=== PATIENT | male | born 1975 | race Hispanic/Latino ===

== ENCOUNTER 2023-06-16 08:25 | Observation (INO) | payer SELFPAY ==
[2023-06-16 08:44] LABS: Absolute Lymphocytes (CBC) 2.2 K/uL (0.7-4.9); Hematocrit 40.6 % (39.6-49.0); Lymphocytes % 38.5 % (15.3-44.8); MCV 90.1 fL (80-100); MPV 8.9 fL (7.6-11.3); Platelets 203 thou/uL (152-406)
[2023-06-16 08:45] LABS: Protime INR 1.01
[2023-06-16 09:01] LABS: Magnesium 2.1 mg/dL (1.6-2.4); Potassium 3.7 mEq/L (3.5-5.1); Troponin High Sensitivity 6.5 pg/mL (<58.9)
--- NOTE | 2023-06-16 09:03 | RAD REPORT ---
EXAM DESCRIPTION: Jose Single View06/16/2023 8:50 am CLINICAL HISTORY: CHEST PAIN COMPARISON: CHEST PA AND LAT 2 VIEW dated 11/28/2008 TECHNIQUE: Portable AP view of the chest. FINDINGS: The lungs are clear. No pneumothorax or effusion. The cardiomediastinal contours are unre markable. IMPRESSION: No acute cardiopulmonary process.
--- NOTE | 2023-06-16 11:57 | EDPHYS ---
Physician Documentation [facility] Name: Sigifredo Hoffmann Age: 47 yrs Sex: Male : 1975 Arrival Date: 06/16/2023 Time: 08:25 Bed 7 Private MD: ED Physician Anam Navas HPI: 06/16 08:35 This 47 yrs old Male presents to ER via Unassigned with complaints of Chest cp Pain. 08:35 The patient or guardian reports chest pain that is located primarily in the anterior cp chest wall, left. Onset: 2 day(s) ago. The pain does not radiate. Associated signs and symptoms: Pertinent negatives: abdominal pain, cough, lower extremity pain, lower extremity swelling, shortness of breath, syncope. Duration: The patient or guardian reports multiple episodes, that are intermittent. Modifying factors: the symptoms are aggravated by exertion. 08:35 Severity of pain: in the emergency department the pain has resolved after treatment by EMS personnel. Historical: - Allergies: 08:38 No Known Allergies; rs5 - Home Meds: 08:38 None [Active]; rs5 - PMHx: 08:38 None; rs5 - PSHx: 08:38 None; rs5 - Immunization history:: Adult Immunizations unknown. - Social history:: Smoking status: Patient denies any tobacco usage or history of. ROS: 08:36 Cardiovascular: Positive for chest pain, Negative for edema, palpitations. cp 08:36 Constitutional: Negative for body aches, chills, fever. cp 08:36 Eyes: Negative for injury, pain, redness, and discharge. cp 08:36 ENT: Negative for drainage from ear(s), ear pain, sore throat, difficulty swallowing, difficulty handling secretions. 08:36 Respiratory: Negative for cough, shortness of breath, wheezing. 08:36 Abdomen/GI: Negative for abdominal pain, vomiting, diarrhea, constipation. 08:36 Back: Negative for pain at rest, pain with movement. 08:36 Neuro: Negative for altered mental status, dizziness, headache, numbness, syncope, weakness. 08:36 All other systems are negative. cp Exam: 08:36 ECG was reviewed by the Attending Physician. cp 08:40 Constitutional: The patient appears in no acute distress, alert, awake, cp non-diaphoretic, non-toxic, well developed, well nourished. 08:40 Head/Face: Normocephalic, atraumatic. cp 08:40 Eyes: Periorbital structures: appear normal, Conjunctiva: normal, no exudate, no injection, Sclera: no appreciated abnormality, Lids and lashes: appear normal, bilaterally. 08:40 ENT: External ear(s): are unremarkable, Nose: is normal, Mouth: Lips: moist, Oral mucosa: pink and intact, moist, Posterior pharynx: Airway: no evidence of obstruction, patent. 08:40 Neck: ROM/movement: is normal, is supple, without pain, no range of motions limitations. 08:40 Chest/axilla: Inspection: normal, Palpation: is normal, no crepitus, no tenderness. 08:40 Cardiovascular: Rate: bradycardic, Rhythm: regular, Edema: is not appreciated, JVD: is not appreciated. 08:40 Respiratory: the patient does not display signs of respiratory distress, Respirations: normal, no use of accessory muscles, no retractions, labored breathing, is not present, Breath sounds: are clear throughout, no decreased breath sounds, no stridor, no wheezing. 08:40 Abdomen/GI: Inspection: abdomen appears normal, Bowel sounds: active, all quadrants, Palpation: abdomen is soft and non-tender, in all quadrants. 08:40 Back: pain, is absent, ROM is normal. 08:40 Neuro: Orientation: to person, place \T\ time. Mentation: is normal, Motor: moves all fours, strength is normal, Sensation: is normal. Vital Signs: 08:25 BP 142 / 88; Pulse 59; Resp 17; Temp 97.8(O); Pulse Ox 100% on R/A; rs5 08:35 BP 130 / 80 RA; Pulse 62; Resp 17; Temp 97.8; Pulse Ox 99% on R/A; rs5 09:31 BP 142 / 88 LA; Pulse 59; Resp 17; Pulse Ox 99% on R/A; rs5 09:31 BP 136 / 80 RA; Pulse 57; Resp 17; Pulse Ox 99% on R/A; rs5 10:33 BP 159 / 85; Pulse 71; Pulse Ox 100% on R/A; ap3 11:36 BP 140 / 86; Pulse 58; Resp 17; Pulse Ox 98% on R/A; rs5 12:30 BP 142 / 85; Pulse 62; Resp 17; Pulse Ox 97% on R/A; rs5 13:40 BP 138 / 80; Pulse 61; Resp 17; Pulse Ox 98% on R/A; rs5 MDM: 08:31 Patient medically screened. cp 09:18 The patient was not given aspirin in the Emergency Department. Administered by EMS. cp Data reviewed: vital signs, nurses notes, lab test result(s), EKG, radiologic studies, plain films. Management of patient was discussed with the following: Home Mission Worker: Dr Cobos who wants 3 hr repeat troponin and if negative admit for observation. 06/16 08:32 Order name: Basic Metabolic Panel; Complete Time: 09:02 cp 06/16 08:32 Order name: CBC with Diff; Complete Time: 09:02 cp 06/16 08:32 Order name: Magnesium; Complete Time: 09:02 cp 06/16 08:32 Order name: NT PRO-BNP; Complete Time: 09:02 cp 06/16 08:32 Order name: PT-INR; Complete Time: 09:02 cp 06/16 08:32 Order name: Troponin HS; Complete Time: 09:02 cp 06/16 10:38 Order name: Troponin High Sensitivity; Complete Time: 11:28 ap3 06/16 13:09 Order name: Hemoglobin A1c EDWA 06/16 13:09 Order name: Lipid Profile EDWA 06/16 13:13 Order name: Phosphorus EDWA 06/16 13:13 Order name: T4 Free EDWA 06/16 13:13 Order name: Thyroid Stimulating Hormone EDWA 06/16 13:13 Order name: Urinalysis w/ reflexes EDWA 06/16 13:13 Order name: Basic Metabolic Panel EDWA 06/16 13:13 Order name: Basic Metabolic Panel EDMS 06/16 13:13 Order name: CBC with Automated Diff EDMS 06/16 13:13 Order name: CBC with Automated Diff EDMS 06/16 08:32 Order name: XRAY Chest (1 view); Complete Time: 09:04 cp 06/16 08:32 Order name: EKG; Complete Time: 08:32 cp 06/16 12:46 Order name: Diet Heart Healthy; Complete Time: 12:46 aa5 06/16 13:13 Order name: CONS Physician Consult EDWA 06/16 13:13 Order name: Regular EDWA 06/16 08:32 Order name: Cardiac monitoring; Complete Time: 08:33 cp 06/16 08:32 Order name: EKG - Nurse/Tech; Complete Time: 08:33 cp 06/16 08:32 Order name: IV Saline Lock; Complete Time: 08:33 cp 06/16 08:32 Order name: Labs collected and sent; Complete Time: 08:34 cp 06/16 08:32 Order name: O2 Per Protocol; Complete Time: 08: cp 06/16 08:32 Order name: O2 Sat Monitoring; Complete Time: 08:34 cp 06/16 08:32 Order name: Blood Pressure Recheck: bilateral upper extremity; Complete Time: 08:49 cp EC:36 Rate is 57 beats/min. Rhythm is regular. WV interval is normal. QRS interval is normal. cp QT interval is normal. T waves are Inverted in leads III, aVR. Interpreted by me. Reviewed by me. Administered Medications: No medications were administered Disposition: 11:26 Co-signature as Attending Physician, Anam Navas DO I was immediately available on-site ms3 in the Emergency Department for consultation in the care of the patient. Disposition Summary: 06/16/23 11:56 Hospitalization Ordered Hospitalization Status: Observation cp Provider: Clark Gamboa cp Location: Telemetry/MedSurg (observation) cp Condition: Stable cp Problem: new cp Symptoms: have improved cp Bed/Room Type: Standard Room Assignment: 216(06/16/23 13:33) bd Diagnosis - Angina pectoris, unspecified cp Forms: - Medication Reconciliation Form cp - SBAR form cp - Leadership Thank You Letter cp Signatures: Dispatcher [employer] [facility] Janell Solorio bd Bo Romo PA PA cp Sims, Marcus, DO DO ms3 Mane Marquez, RN RN rs5 Corrections: (The following items were deleted from the chart) 08:54 08:38 Social history: Smoking status: Patient denies any tobacco usage or history of. rs5 rs5 13:33 11:56 cp bd
--- NOTE | 2023-06-16 11:57 | ER ---
Nurse's Notes [facility] Name: Sigifredo Hoffmann Age: 47 yrs Sex: Male : 1975 Arrival Date: 06/16/2023 Time: 08:25 Bed 7 Private MD: Diagnosis: Angina pectoris, unspecified Presentation: 06/16 08:25 Chief complaint: EMS states: Pt started having chest pain on Wednesday on exertion. Worse rs5 today. 08:25 Coronavirus screen: At this time, the client does not indicate any symptoms associated rs5 with coronavirus-19. Ebola Screen: No symptoms or risks identified at this time. Initial Sepsis Screen: Does the patient meet any 2 criteria?. Initial Sepsis Screen: Does the patient meet any 2 criteria? No. Patient's initial sepsis screen is negative. Does the patient have a suspected source of infection? No. Patient's initial sepsis screen is negative. Risk Assessment: Do you want to hurt yourself or someone else? Patient reports no desire to harm self or others. Onset of symptoms was June 14, 2023. 08:25 Method Of Arrival: EMS: BASF rs5 08:25 Acuity: DANN 3 rs5 08:39 Care prior to arrival: Medication(s) given: ASA, 81 mg, x 4, Nitroglycerin, x 1, IV rs5 initiated. 20 GA, in the right antecubital area. Historical: - Allergies: 08:38 No Known Allergies; rs5 - Home Meds: 08:38 None [Active]; rs5 - PMHx: 08:38 None; rs5 - PSHx: 08:38 None; rs5 - Immunization history:: Adult Immunizations unknown. - Social history:: Smoking status: Patient denies any tobacco usage or history of. Screenin:25 [facility] ED Fall Risk Assessment (Adult) History of falling in the last 3 months, rs5 including since admission No falls in past 3 months (0 pts) Confusion or Disorientation No (0 pts) Intoxicated or Sedated No (0 pts) Impaired Gait No (0 pts) Mobility Assist Device Used No (0 pt) Altered Elimination No (0 pt) Score/Fall Risk Level 0 - 2 = Low Risk Oriented to surroundings, Maintained a safe environment. Abuse screen: Denies threats or abuse. Nutritional screening: No deficits noted. Tuberculosis screening: No symptoms or risk factors identified. Assessment: 08:25 General: Appears in no apparent distress. comfortable, Behavior is calm, cooperative. rs5 08:25 Pain: Denies pain. Neuro: Level of Consciousness is awake, alert, obeys commands, rs5 Oriented to person, place, time, situation. Cardiovascular: Rhythm is regular. Respiratory: Airway is patent Respiratory effort is even, unlabored, Respiratory pattern is regular, symmetrical, Breath sounds are clear bilaterally. GI: Abdomen is round non-distended, Bowel sounds present X 4 quads. : No signs and/or symptoms were reported regarding the genitourinary system. EENT: No signs and/or symptoms were reported regarding the EENT system. Derm: Skin is dry, Skin is normal, Skin temperature is warm. Musculoskeletal: Range of motion: intact in all extremities. 09:32 Reassessment: Patient and/or family updated on plan of care and expected duration. Pain rs5 level reassessed. Patient is alert, oriented x 3, equal unlabored respirations, skin warm/dry/pink. Patient denies pain at this time. Cardiovascular: Denies chest pain, Rhythm is regular. Respiratory: Airway is patent Respiratory effort is even, unlabored, Respiratory pattern is regular, symmetrical. 10:35 Reassessment: Patient and/or family updated on plan of care and expected duration. Pain rs5 level reassessed. Patient is alert, oriented x 3, equal unlabored respirations, skin warm/dry/pink. To bedside for blood draw. 10:35 Cardiovascular: Denies chest pain, lightheadedness, nausea, shortness of breath, rs5 vomiting, Heart tones S1 S2 present Rhythm is regular. 11:40 Reassessment: Patient and/or family updated on plan of care and expected duration. Pain rs5 level reassessed. Patient denies pain at this time. 11:40 Cardiovascular: Denies chest pain, lightheadedness, nausea, shortness of breath, rs5 vomiting, Rhythm is regular. 12:50 Reassessment: Patient and/or family updated on plan of care and expected duration. Pain rs5 level reassessed. Patient is alert, oriented x 3, equal unlabored respirations, skin warm/dry/pink. Family member at bedside. Pt states "I'm hungry, can you get me something to eat?". 13:00 Reassessment: [place], chips, and orange juice to bedside. rs5 13:20 Reassessment: No changes from previously documented assessment. rs5 13:50 Reassessment: Report given to nurse GERMAINE Iglesias. rs5 Vital Signs: 08:25 BP 142 / 88; Pulse 59; Resp 17; Temp 97.8(O); Pulse Ox 100% on R/A; rs5 08:35 BP 130 / 80 RA; Pulse 62; Resp 17; Temp 97.8; Pulse Ox 99% on R/A; rs5 09:31 BP 142 / 88 LA; Pulse 59; Resp 17; Pulse Ox 99% on R/A; rs5 09:31 BP 136 / 80 RA; Pulse 57; Resp 17; Pulse Ox 99% on R/A; rs5 10:33 BP 159 / 85; Pulse 71; Pulse Ox 100% on R/A; ap3 11:36 BP 140 / 86; Pulse 58; Resp 17; Pulse Ox 98% on R/A; rs5 12:30 BP 142 / 85; Pulse 62; Resp 17; Pulse Ox 97% on R/A; rs5 13:40 BP 138 / 80; Pulse 61; Resp 17; Pulse Ox 98% on R/A; rs5 ED Course: 08:28 Patient arrived in ED. ap3 08:29 Maintain EMS IV. Dressing intact. Good blood return noted. Site clean \\T\\ dry. Gauge \\T\\ ap 3 site: 20g right AC. 08:29 Patient has correct armband on for positive identification. Placed in gown. Bed in low ap3 position. Call light in reach. Side rails up X2. fur dresser on. Pulse ox on. NIBP on. 08:31 Bo Romo PA is PHCP. cp 08:31 Anam Navas DO is Attending Physician. cp 08:33 Mane Marquez RN is Primary Nurse. rs5 08:37 Initial lab(s) drawn, by me, sent to lab. ap3 08:38 Triage completed. rs5 08:51 XRAY Chest (1 view) In Process Unspecified. EDMS 10:53 Troponin High Sensitivity Sent. rs5 11:56 Clark Gamboa MD is Hospitalizing Provider. cp 14:10 No provider procedures requiring assistance completed. rs5 Administered Medications: No medications were administered Medication: 14:10 VIS not applicable for this client. rs5 Outcome: 11:56 Decision to Hospitalize by Provider. cp 14:10 Patient left the ED. rs5 14:10 Admitted to Med/surg accompanied by tech, via wheelchair. rs5 14:10 Condition: stable Signatures: Dispatcher [employer] EDMS Juli Jang RN RN aa5 Bo Romo PA PA cp Prokisch, Amanda, RN RN ap3 Mane Marquez RN RN rs5 Corrections: (The following items were deleted from the chart) 08:41 08:39 General: Appears in no apparent distress. comfortable, Behavior is calm, rs5 cooperative, rs5 08:54 08:38 Social history: Smoking status: Patient denies any tobacco usage or history of. rs5 rs5 08:54 08:44 BP 130 / 80 R Arm; Pulse 62bpm; Resp 17bpm; Pulse Ox 99% RA; Temp 97.8F; rs5 rs5 14:54 14:22 Patient left the ED. aa5 rs5
[2023-06-16] MEDS ORDERED: ONDANSETRON 4 MG/2 ML VIAL IV PRN (13:10)
--- NOTE | 2023-06-16 13:20 | P.HP ---
Certification for Inpatient Patient admitted to: Observation With expected LOS: <2 Midnights Patient will require the following post-hospital care: None Practitioner: I am a practitioner with admitting privileges, knowledge of patient current condition, hospital course, and medical plan of care. Services: Services provided to patient in accordance with Admission requirements found in Title 42 Section 412.3 of the Code of Federal Regulations Patient History Date of Service: 06/16/23 Reason for admission: Chest pain. History of Present Illness: Patient is a 47-year-old male with no known past medical history who presents with complaint of chest pain located in the left chest area onset yesterday. Patient reported that chest pain has been intermittent but became worse this morning. Patient reported that chest pain radiates to his left arm, neck and back. Patient indicated that chest pain is aggravated by exertion and relieved by rest. Patient reported associated signs and symptoms of headache, dizziness, shortness of breath and cough. Patient denies any other signs and symptoms. Patient decided to present to the hospital due to worsening symptoms. Allergies No Known Allergies Allergy (Unverified 06/16/23 13:17) Home Medications: NK [No Home Meds] 06/16/23 - Past Medical/Surgical History Past Medical History: Reviewed- Non-Contributory -: Appendectomy. - Social History Smoking Status: Former smoker Alcohol use: No CD- Drugs: No Caffeine use: Yes Place of Residence: Home Review of Systems General: Unremarkable Eyes: Unremarkable ENT: Unremarkable Respiratory: Cough, Shortness of Breath Cardiovascular: Chest Pain Gastrointestinal: Unremarkable Genitourinary: Unremarkable Musculoskeletal: Neck Pain, Arm Pain, Back Pain Integumentary: Unremarkable Neurological: Other (CARMONA, Dizzness) Lymphatics: Unremarkable Physical Examination - Physical Exam General: Alert, In no apparent distress, Oriented x3, Cooperative HEENT: Atraumatic, PERRLA, Mucous membr. moist/pink, EOMI, Sclerae nonicteric Neck: Supple, 2+ carotid pulse no bruit, No LAD, Without JVD or thyroid abnormality Respiratory: Clear to auscultation bilaterally, Normal air movement Cardiovascular: No edema, Regular rate/rhythm, Normal S1 S2 Capillary refill: <2 Seconds Gastrointestinal: Normal bowel sounds, Soft and benign, Non-distended, No tenderness Musculoskeletal: No clubbing, No swelling, No tenderness Integumentary: No rashes, No significant lesion Neurological: Normal speech, Normal tone, Normal affect Lymphatics: No axilla or inguinal lymphadenopathy - Studies Laboratory Data (last 24 hrs) 06/16/23 06/16/23 06/16/23 08:35 08:35 08:35 WBC 5.60 Hgb 14.3 Hct 40.6 Plt Count 203 PT 11.1 INR 1.01 Sodium 141 Potassium 3.7 BUN 16 Creatinine 0.89 Glucose 125 H Magnesium 2.1 Assessment and Plan - Plan --Chest pain. To rule out ACS. Serial troponins negative so far. Cardiology consulted. Echocardiogram pending to assess cardiac structures and functions. Telemetry to monitor for any significant arrhythmia. D-dimer unremarkable. Will await further recommendations from clinical ob. -- Hyperlipidemia. Patient placed on statin. --Headache. Tylenol as needed. -- Cough. Chest x-ray unremarkable. Antitussives on board. -- Acute pain. We will manage pain with current pain medication regimen. --Elevated blood pressure without a diagnosis of hypertension. We will manage BP with hydralazine as needed. --DVT prophylaxis with Lovenox subQ. Discharge Plan: Home Plan to discharge in: 48 Hours - Advance Directives Does patient have a Living Will: No Does patient have a Durable POA for Healthcare: No - Code Status/Comfort Care Code Status Assessed: Yes Physician Review: Patient Assessed, Agree with Above Assessment and Plan Critical Care: No
[2023-06-16 15:19] LABS: Specific Gravity 1.021 (1.005-1.030); Urine Bilirubin NEGATIVE (Negative); Urine Blood Negative (Negative); Urine Clarity Clear (Clear); Urine Color Light-Yellow (Yellow); Urine Glucose 3+ (Negative); Urine Protein NEGATIVE (Negative); Urine Urobilinogen Normal (Normal); Urine pH 5.5 (5.0-7.0)
[2023-06-16 15:44] LABS: Phosphorus 2.7 mg/dL (2.5-4.9); Thyroid Stimulating Hormone 1.03 uIU/mL (0.358-3.740)
[2023-06-16] MEDS ORDERED: HYDRALAZINE HCL 20 MG/ML VIAL IV PRN (17:26)
[2023-06-16] MEDS: ENOXAPARIN 40 MG/0.4 ML SQ SCH (17:51)
--- NOTE | 2023-06-16 17:51 | EKG ---
Test Date: 2023-06-16 Test Time: 08:32:19 Supervisor Case Loading: BRAULIO MEASUREMENT RESULTS: Intervals: Rate: 57 AL: 166 QRSD: 84 QT: 394 QTc: 383 [place]: P: 38 AL: 166 QRS: 32 T: 5 INTERPRETIVE STATEMENTS: Sinus bradycardia Cannot rule out Anterior infarct, age undetermined Abnormal ECG Compared to ECG 11/28/2008 09:53:06 Myocardial infarct finding now present Sinus arrhythmia no longer present Electronically Signed On 06-16-23 17:50:35 CDT by Melvin Cobos
[2023-06-16] MEDS ORDERED: ASPIRIN 81 MG CHEWABLE TABLET PO ONE (17:58)
--- NOTE | 2023-06-16 19:06 | CON ---
Date of Consultation: 06/16/2023 Reason For Consultation: Chest pain. History Of Present Illness: A 47-year-old male, no medical history, presented with chest pain, retro sternal, intermittent, does not radiate, but definitely happens with activities. He said when he beaulieu s any work at his job, he gets chest pain. No active chest pain at present time. Past Medical History: None. Medications: None. Allergies: NO KNOWN DRUG ALLERGIES. Family History: No premature coronary artery disease or cancer. Social History: Does not smoke or drink. Does not use any drugs. Review of Systems: All systems reviewed and they were negative except what mentioned in HPI. Physical Examination: Vital Signs: Reviewed. Head and Neck: Pupils are equal, reactive to light. Intact eye movements. No JVD. No cervical lym phadenopathy. Neck is supple. Thyroid is not enlarged. Lungs: Clear to auscultation bilaterally. No rhonchi, wheezing, or crackles. No accessory muscle u se. Heart: Regular rate and rhythm. No extra sounds. Abdomen: Soft, nontender. Bowel sounds positive. No organomegaly. No masses or hernia. No rigidi ty or rebound. Extremities: No edema, clubbing, or cyanosis. Intact pulses. Skin: No rash. Neurologic: Alert, awake, oriented x3. No acute focal deficits appreciated. Investigations: BUN 16, creatinine 0.89. Cardiac enzymes x3 are negative. LDL cholesterol was 140. Assessment And Recommendations: 1.Chest pain. It is exertional. It has typical features. Cardiac enzymes are negative. Obtain an exercise nuclear stress test on him tomorrow. 2.Dyslipidemia. Recommend Lipitor 40 mg at bedtime and also start him on baby aspirin. SR/MODL Voice ID: [id number] Report ID: [id number]
[2023-06-16] MEDS ORDERED: ATORVASTATIN 40 MG TAB PO SCH (21:00)
[2023-06-16 21:05] VITALS: O2SAT 96
[2023-06-16] MEDS ORDERED: MELATONIN 5 MG TABLET PO PRN (21:24)
[2023-06-17 03:25] LABS: Absolute Lymphocytes (CBC) 1.9 K/uL (0.7-4.9); Hematocrit 40.3 % (39.6-49.0); Lymphocytes % 36.4 % (15.3-44.8); MCV 89.9 fL (80-100); MPV 9.5 fL (7.6-11.3); Platelets 178 thou/uL (152-406); RBC Red Blood Cell Count 4.48 M/uL (4.33-5.43)
[2023-06-17 03:36] LABS: Potassium 3.6 mEq/L (3.5-5.1)
[2023-06-17] MEDS ORDERED: POTASSIUM CL SA 10 MEQ TAB PO ONE (04:05)
[2023-06-17] MEDS: ENOXAPARIN 40 MG/0.4 ML SQ SCH (08:11)
[2023-06-17] MEDS ORDERED: ENOXAPARIN 40 MG/0.4 ML SQ SCH (09:00)
[2023-06-17] MEDS ORDERED: ASPIRIN 81 MG CHEWABLE TABLET PO SCH (09:00)
[2023-06-17] MEDS ORDERED: REGADENOSON 0.4 MG/5 ML SYR IV ONE (10:57)
--- NOTE | 2023-06-17 11:44 | RAD REPORT ---
EXAM DESCRIPTION: NM - Rest Stress Cardiac Imaging - 06/17/2023 11:29 am CLINICAL HISTORY: Chest pain. COMPARISON: None. TECHNIQUE: The patient was administered 10.9 mCi of Tc 99m Sestamibi prior to resting SPECT imaging of the heart. The patient was then administered 30. 7 mCi of Tc 99m Sestamibi following exercise or p harmacologic stress. Multiplanar SPECT images were reviewed. FINDINGS: There is uniformity of radiotracer uptake involving the entire left ventricular myocardiu m on rest and stress images. The left ventricular ejection fraction equals 56% IMPRESSION: Negative for a myocardial perfusion defect
--- NOTE | 2023-06-17 12:13 | ECHO ---
HEIGHT: 5 ft 3 in WEIGHT: 160 lb 0 oz DATE OF STUDY: 06/17/[address]: Debra Meredith 2-DIMENSIONAL: YES M.MODE: YES DOPPLER: YES COLOR FLOW: YES TDS: PORTABLE: YES DEFINITY: BUBBLE STUDY: DIAGNOSIS: CHEST PAIN CARDIAC HISTORY: CATHERIZATION: NO SURGERY: NO PROSTHETIC VALVE: NO PACEMAKER: NO MEASUREMENTS (cm) DIASTOLIC (NORMALS) SYSTOLIC (NORMALS) IVSd 0.9 (0.6-1.2) LA Diam 2.9 (1.9-4.0) LVEF 68% LVIDd 4.7 (3.5-5.7) LVIDs 2.9 (2.0-3.5) %FS 38% LVPWd 0.9 (0.6-1.2) Ao Diam 2.9 (2.0-3.7) 2 DIMENSIONAL ASSESSMENT: RIGHT ATRIUM: NORMAL LEFT ATRIUM: NORMAL RIGHT VENTRICLE: NORMAL LEFT VENTRICLE: NORMAL TRICUSPID VALVE: MILD TRICUSPID REGURGITATION MITRAL VALVE: NORMAL PULMONIC VALVE: NORMAL AORTIC VALVE: NORMAL PERICARDIAL EFFUSION: NONE AORTIC ROOT: NORMAL LEFT VENTRICULAR WALL MOTION: NORMAL DOPPLER/COLOR FLOW: MILD TRICUSPID REGURGITATION COMMENTS: 1. NORMAL LEFT VENTRICULAR EJECTION FRACTION 60-65% 2. NORMAL WALL MOTION 3. MILD TRICUSPID REGURGITATION 4. NORMAL RIGHT VENTRICULAR SYSTOLIC PRESSURE OF LESS THAN 20 mmHg TECHNOLOGIST: LEANDRO LOBO
[2023-06-17 12:18] VITALS: BP 134/75; TEMP 97.5
--- NOTE | 2023-06-17 12:39 | TREADPHA ---
DX: CHEST PAIN Date of Study: 06/17/2023 Ht: 5' 3 " Wt: 160 lb 0 oz Consulting Physician: MARIA GUADALUPE MEDICATIONS: ASPIRIN, LOVENOX, POTASSIUM HISTORY: DENIES ANY HISTORY PHYSICIAL EXAMINATION: RESTING B.P.: 122/73 RESTING H.R.: 58 RESTING EKG: NORMAL SINUS RHYTHM PROTOCOL: PHARMACOLOGIC EXERCISE TIME: 3:30 B.P. AT PEAK STRESS: 125/71 IMPRESSION: LEXISCAN STRESS TEST PERFORMED. CARDIOLITE INJECTED PER PROTOCOL. SEE NUCLEAR MEDICINE REPORT. NO SUPRAVENTRICULAR TACHYCARDIA, VENTRICULAR TACHYCARDIA NOTED. NO ARRHYTHMIA NOTED. NO SHORTNESS OF BREATH OR CHEST PAIN NOTED. NO ELECTROCARDIOGRAM CHANGES OF ISCHEMIA WITH LEXISCAN.
--- NOTE | 2023-06-17 13:05 | P.DS ---
Admission Date: 06/16/23 Discharge Date: 06/17/23 Disposition: ROUTINE DISCHARGE Discharge Condition: GOOD Reason for Admission: Chest pain. Consultations: 1. Cardiology Hospital Course: DIAGNOSES: # Chest Pain, likely noncardiac # Hyperlipidemia HOSPITAL COURSE: Mr. Sigifredo Hoffmann is a 47 year old male with a past medical history significant for hyperlipidemia who was admitted to the [facility] on 06/16/2023 for chest pain. He was admitted to the Medicine service. Upon further evaluation, his EKG was without STEMI criteria. His d-dimer was <215. His serial troponin was 6.5 -> 7.9 -> 7.0 -> 6.4. His chest x-ray revealed, "no acute cardiopulmonary process." His transthoracic echocardiogram revealed, "1. normal left ventricular ejection fraction 60-65% 2. normal wall motion 3. mild tricuspid regurgitation 4. normal right ventricular systolic pressure of less than 20 mmHg." Cardiology was consulted and he was evaluated by Dr. Cobos. He recommended a nuclear stress test, which revealed, "negative for a myocardial perfusion defect." Dr. Cobos has cleared him for discharge with outpatient follow-up. On 06/17/2023, he was seen on rounds and deemed medically stable for discharge. He was discharged with instructions to schedule follow-up appointments with his PCP and with Cardiology (Dr. Cobos). He was given the opportunity to ask questions and reported no further questions. Furthermore, all questions were answered to the best of my ability. A copy of this discharge summary will be sent to the above providers to fa cilitate continuity of care. Today, I personally spent 25 minutes on his case, of which greater than 50% of the time was spent in patient education, counseling, and coordination of care as described above. Vital Signs/Physical Exam: Temp Pulse Resp BP Pulse Ox 97.5 F 68 18 134/75 100 06/17/23 12:00 06/17/23 12:00 06/17/23 12:00 06/17/23 12:06/17/23 12:00 General: Alert, In no apparent distress, Oriented x3 HEENT: Atraumatic, Mucous membr. moist/pink, Sclerae nonicteric Neck: JVD not distended Respiratory: Clear to auscultation bilaterally, Normal air movement Cardiovascular: No edema, Regular rate/rhythm, Normal S1 S2, No gallops, No rubs, No murmurs Gastrointestinal: Normal bowel sounds, Soft and benign, Non-distended, No tenderness, No rebound, No guarding Musculoskeletal: No clubbing Integumentary: No rashes Neurological: Normal speech, Normal affect Laboratory Data at Discharge: WBC 5.20 thou/uL (4.3-10.9) 06/17/23 02:16 Hgb 14.3 g/dL (13.6-17.9) 06/17/23 02:16 Hct 40.3 % (39.6-49.0) 06/17/23 02:16 Plt Count 178 thou/uL (152-406) 06/17/23 02:16 PT 11.1 SECONDS (9.5-12.5) 06/16/23 08:35 INR 1.01 06/16/23 08:35 Sodium 139 mEq/L (136-145) 06/17/23 02:16 Potassium 3.6 mEq/L (3.5-5.1) 06/17/23 02:16 BUN 15 mg/dL (7-18) 06/17/23 02:16 Creatinine 0.71 mg/dL (0.70-1.30) 06/17/23 02:16 Glucose 116 mg/dL (74-106) H 06/17/23 02:16 Phosphorus 2.7 mg/dL (2.5-4.9) 06/16/23 15:03 Magnesium 2.1 mg/dL (1.6-2.4) 06/16/23 08:35 Triglycerides 235 mg/dL (<150) H 06/16/23 15:03 Cholesterol 227 mg/dL (<200) H 06/16/23 15:03 HDL Cholesterol 40 mg/dL (40-60) 06/16/23 15:03 Cholesterol/HDL Ratio 5.68 06/16/23 15:03 Home Medications: Aspirin Chewable [Aspirin Chewable*] 81 mg PO DAILY tab.chew 06/17/23 Atorvastatin Calcium [Lipitor] 40 mg PO BEDTIME #30 tab 06/17/23 New Medications: Atorvastatin Calcium [Lipitor] 40 mg PO BEDTIME #30 tab Physician Discharge Instructions: 1. Please call and schedule a follow-up appointment with your PCP in 3-5 days 2. Please call and schedule a follow-up appointment with Cardiology (Dr. Cobos) in 5-7 days Medication changes: 1. Please take atorvastatin 40 mg once per night You have been given a 1 month prescription for this medication. This medication can sometimes cause abnormal liver enzymes in your blood work. Please follow-up with your PCP for follow-up labs (liver testing) and medication refills/adjustments Diet: AHA Activity: Ad ciro Followup: NONE,NONE [Primary Care Provider] - Melvin Cobos MD [ACTIVE - CAN ADMIT] - Time spent managing pt's care (in minutes): 25
[2023-06-17 13:59] VITALS: BMI 28.5
== END 2023-06-17 15:01 | disposition home or self-care (01) ==
LOC: ER 08:25 → ERHOLD 13:06 → 2ND 14:02
PROVIDERS: ADMIT Internal Medicine; ATTEND Internal Medicine
DX: R07.9 Chest pain, unspecified (principal); R51.9 Headache, unspecified; R42 Dizziness and giddiness; R06.02 Shortness of breath; R05.9 Cough, unspecified; E78.5 Hyperlipidemia, unspecified; R03.0 Elevated blood-pressure reading, without diagnosis of hypertension; Z87.891 Personal history of nicotine dependence
CPT/HCPCS: 36415; 71045; 78452; 80048; 80061; 81003; 83036; 83735; 83880; 84100; 84439; 84443; 84484; 85025; 85379; 85610; 93005; 93017; 93306; 99285; A9500; G0378; J1650; J2785